=== PATIENT | male | born 1995 | race Caucasian/White ===

== ENCOUNTER 2021-11-05 16:38 | Emergency (ER) | payer OTHER, SELFPAY ==
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
[2021-11-05 16:44] VITALS: BP 146/79; PULSE 113; RESP 16; TEMP 36.6; O2SAT 100
[2021-11-05 17:15] LABS: Basophils Absolute Auto 0.1 K/mm3 (0.0-0.1); Basophils Percent Auto 0.7 % (0.2-1.2); Eosinophils Absolute Auto 0.3 K/mm3 (0-0.3); Eosinophils Percent Auto 3.4 % (0-4.4); Hematocrit 41.8 % (42.0-52.0); Hemoglobin 15.1 g/dL (14.0-18.0); Immature Granulocyte Absolute 0.01 K/mm3 (0.00-0.031); Immature Granulocyte Percent A 0.1 % (0-0.5); Lymphocytes Absolute Auto 2.49 K/mm3 (0.9-3.2); Lymphocytes Percent Auto 32.8 % (18.3-44.2); Mean Corpuscular HGB Conc 36.1 g/dl (32-36); Mean Corpuscular Hemoglobin 31.7 pg (26-34); Mean Corpuscular Volume 87.6 fl (80-100); Mean Platelet Volume 10.3 fl (7.4-10.4); Monocytes Absolute Auto 0.7 K/mm3 (0.1-0.6); Neutrophils Absolute Auto 4.1 K/mm3 (1.3-6.7); Platelet Count Result 206 k/mm3 (150-375); Red Blood Count 4.77 M/mm3 (4.6-6.20); White Blood Count 7.6 K/mm3 (4.5-10.0)
[2021-11-05 17:34] LABS: Alanine Aminotransferase 27 U/L (4-50); Albumin Level 4.3 g/dL (3.5-5.1); Alkaline Phosphatase 70 U/L (38-126); Anion Gap 6 mmol/L (8-16); Aspartate Amino Transferase 28 U/L (17-59); Bilirubin,Total 0.4 mg/dL (0.2-1.3); Blood Urea Nitrogen 15 mg/dL (9-20); Calcium 9.1 mg/dL (8.4-10.2); Carbon Dioxide 28 mmol/L (22-30); Chloride 104 mmol/L (98-107); Estimated CRCL calculation 131 ml/min; Estimated Glomerular Filt Rate > 60; Glucose 119 mg/dL (65-110); Sodium 138 mmol/L (137-145)
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
[2021-11-05] MEDS: KETOROLAC 30 MG/ML VIAL (*BKC) IV PUSH (18:00)
[2021-11-05] MEDS: SODIUM CHLORIDE 0.9% IV 1,000 ML 999 ML IV CONT (18:00)
== END 2021-11-05 19:30 | disposition home or self-care (01) ==
PROVIDERS: Emergency Provider Emergency Medicine
DX: S39.92XA Unspecified injury of lower back, initial encounter (principal); S16.1XXA Strain of muscle, fascia and tendon at neck level, initial encounter; M47.812 Spondylosis without myelopathy or radiculopathy, cervical region; V43.52XA Car driver injured in collision with other type car in traffic accident, initial encounter
CPT/HCPCS: 36415; 71046; 72125; 74177; 80053; 85025; 96361; 96374; 99284; J1885; J7030; Q9967

== ENCOUNTER 2022-05-16 08:42 | Emergency (ER) | payer OTHER, SELFPAY ==
[2022-05-16 08:45] VITALS: BP 155/82; PULSE 96; RESP 20; TEMP 37; O2SAT 99
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
[2022-05-16] MEDS: KETOROLAC (*BKC) 60 MG/2 ML VIAL IM (09:30)
[2022-05-16] MEDS: TRIAMCINOLONE ACET INJ 40 MG/ML VIAL 80 MG IM (09:38)
[2022-05-16 10:05] VITALS: BP 107/52; PULSE 68; RESP 16; O2SAT 98
== END 2022-05-16 10:05 | disposition home or self-care (01) ==
PROVIDERS: Emergency Provider Nurse Practitioner Family
DX: M54.16 Radiculopathy, lumbar region (principal)
CPT/HCPCS: 96372; 99284; J1885; J3301

== ENCOUNTER 2022-07-08 20:49 | Emergency (ER) | payer OTHER, SELFPAY ==
[2022-07-08] VITALS (19 sets, daily range): BP systolic 132–172; BP diastolic 66–116; PULSE 80–123; RESP 12–20; TEMP 36.9; O2SAT 95–100
--- NOTE | ~2022-07-08 | CT_ITS ---
EXAMINATION: CT brain wo con DATE: 07/08/2022 22:47 INDICATION: Frontal and bilateral superior headaches, nausea and light sensitivity. TECHNIQUE: Computed tomography (CT) of the head was performed without intravenous contrast. Sagittal and coronal reconstructions were performed. The mA was adjusted according to patient size. Iterative reconstruction technique was employed. The dose-length product was 681.00 mGy-cm. COMPARISON: None FINDINGS: No acute intracranial hemorrhage, acute infarction or abnormal extra axial fluid collection. Ventricl es are normal and symmetric. No mass/mass effect. Mild mucoperiosteal thickening in the bilateral eth moid sinuses. The orbits and mastoid air cells are normal. IMPRESSION: 1. Normal brain. No acute intracranial process. Reviewed, dictated and finalized at location A.
[2022-07-08 22:05] LABS: Influenza A QL RT-PCR Negative (Negative); Influenza B QL RT-PCR Negative (Negative); SARS-CoV-2 RNA PCR Negative
[2022-07-08] MEDS: KETOROLAC 30 MG/ML VIAL (*BKC) IV PUSH (22:51)
[2022-07-08] MEDS: diphenhydrAMINE HCl INJ 50 MG/ML VIAL 25 MG IV PUSH (22:52)
[2022-07-08] MEDS: methylPREDNISolone SOD SUCC 125 MG VIAL IV PUSH (22:52)
[2022-07-08] MEDS: METOCLOPRAMIDE HCL INJ 10 MG/2 ML VIAL IV PUSH (22:52)
[2022-07-08] MEDS: SODIUM CHLORIDE 0.9% IV 1,000 ML 999 ML IV CONT (22:52)
--- NOTE | 2022-07-08 22:54 | ED.GENADULT ---
HPI - General Adult General Chief complaint: Fever Stated complaint: fever, chills Time Seen by Provider: 07/08/22 20:51 History of Present Illness HPI narrative: 26-year-old male history of chronic low back pain with radicular symptoms to his left leg presents to the emergency room for multiple complaints. Patient states that he has been experiencing radicular pain in his right leg and left arm since last night. States that he normally takes gabapentin, but this has been not managing his pain. Patient also states he is experiencing head fullness that is light sensitive and has made him nauseated to the point where he is thrown up twice. Patient stated headache radiates down into his neck, causing pain when he attempts to move his neck around. Patient also states that he is been shivering, but only does so when people are watching him. Patient complains of subjective fever but states that he did not have a thermometer so he does not know what his temperature was. Related Data Allergies Allergy/AdvReac Type Severity Reaction Status Date / Time No Known Allergies Allergy Verified 07/08/22 20:53 Review of Systems Review of Systems: CONSTITUTIONAL: Reports fever, chills, and sweats. EYES: Reports photophobia ENT: Denies rhinorrhea, congestion, sore throat, or otalgia. CARDIOVASCULAR: Denies chest pain, palpitations, or edema. RESPIRATORY: Denies cough or dyspnea. GASTROINTESTINAL: Reports nausea and vomiting GENITOURINARY: Denies dysuria or hematuria. SKIN: Denies rash or itching. MUSCULOSKELETAL: Reports neck pain, left arm pain, bilateral leg pain NEUROLOGIC: Reports headache PSYCHIATRIC: Denies anxiety or depression. PMFSH Past Medical History Medical History Patient denies significant medical history Social History Social History Smoking status: Never smoker Exam Narrative: GENERAL: Well-appearing, well-nourished, no physical limitations, and in no acute distress. HEAD: Normocephalic, atraumatic. EYES: Conjunctivae normal, PERRLA and EOMI. ENT: External nose normal, Nares clear, no rhinorrhea or epistaxis. Mucous membranes moist. Oropharynx without tonsillar hypertrophy exudate or other lesions. External ears normal, bilateral TMs normal bilaterally NECK: Supple. No meningeal signs. No adenopathy or masses. CHEST: Clear to auscultation. No respiratory distress. No wheezes rales or rhonchi. HEART: Regular rate and rhythm. No murmur heard. Normal peripheral pulses. ABDOMEN: Soft, nontender, nondistended, normal active bowel sounds. BACK: Midline cervical tenderness, step-offs, bony abnormality; pain with forward flexion of the cervical spine EXTREMITIES: Normal range of motion. No edema. No clubbing or cyanosis SKIN: Warm, dry, no rash. No noted wounds NEURO: No focal deficits. Alert and oriented x3. MAEW. CN's II-XI intact bilaterally. Intentional tremors of the lower extremities PSYCH: Histrionic Course Course Emergency Course: 2214: Patient significant other was seen calling other emergency room's inquiring as to what they are we times where prior to be seen by the provider. Vital Signs Vital signs: Vital Signs Temperature 36.9 C 07/08/22 20:50 Pulse Rate 123 H 07/08/22 20:50 Respiratory Rate 20 07/08/22 20:50 Blood Pressure 172/66 H 07/08/22 20:50 Pulse Oximetry 99 07/08/22 20:50 Oxygen Delivery Room Air 07/08/22 20:50 Temperature 36.9 C 07/08/22 20:50 Pulse Rate 84 07/08/22 22:51 Respiratory Rate 18 07/08/22 22:51 Blood Pressure 99/60 L 07/09/22 00:16 Pulse Oximetry 96 07/09/22 00:16 Oxygen Delivery Room Air 07/08/22 20:50 Medical Decision Making [facility] Narrative Medical decision making narrative: 26-year-old male presented to the emergency room with multiple medical complaints. Patient initially came into triage complaining of headache, nausea
[2022-07-08 22:58] LABS: Basophils Percent Auto 0.3 % (0.2-1.2); Eosinophils Absolute Auto 0.1 K/mm3 (0-0.3); Eosinophils Percent Auto 0.4 % (0-4.4); Hematocrit 45.3 % (42.0-52.0); Hemoglobin 15.9 g/dL (14.0-18.0); Immature Granulocyte Absolute 0.06 K/mm3 (0.00-0.031); Immature Granulocyte Percent A 0.5 % (0-0.5); Lymphocytes Absolute Auto 2.11 K/mm3 (0.9-3.2); Lymphocytes Percent Auto 16.5 % (18.3-44.2); Mean Corpuscular HGB Conc 35.1 g/dl (32-36); Mean Corpuscular Hemoglobin 30.4 pg (26-34); Mean Corpuscular Volume 86.6 fl (80-100); Monocytes Absolute Auto 1.1 K/mm3 (0.1-0.6); Monocytes Percent Auto 8.7 % (2.6-8.5); Neutrophils Absolute Auto 9.4 K/mm3 (1.3-6.7); Neutrophils Percent Auto 73.6 % (45.5-73.1); Platelet Count Result 218 k/mm3 (150-375); Red Blood Count 5.23 M/mm3 (4.6-6.20); Red Cell Distribution Width 12.1 % (11.5-14.5); White Blood Count 12.8 K/mm3 (4.5-10.0)
[2022-07-08 23:09] LABS: Lactic Acid Reflex 0.9 mmol/L (0.7-2.0)
[2022-07-08 23:10] LABS: Alanine Aminotransferase 37 U/L (6-50); Albumin Level 4.8 g/dL (3.5-5.1); Alkaline Phosphatase 84 U/L (38-126); Anion Gap 9 mmol/L (8-16); Aspartate Amino Transferase 27 U/L (17-59); Bilirubin,Total 0.6 mg/dL (0.2-1.3); Blood Urea Nitrogen 16 mg/dL (9-20); Calcium 9.5 mg/dL (8.4-10.2); Carbon Dioxide 27 mmol/L (22-30); Chloride 101 mmol/L (98-107); Estimated CRCL calculation 14 ml/min; Estimated Glomerular Filt Rate > 60; Glucose 109 mg/dL (65-110); Potassium 3.7 mmol/L (3.4-5.0); Sodium 137 mmol/L (137-145)
[2022-07-08 23:37] LABS: CRP < 0.5 mg/dL (<1.0)
[2022-07-09] VITALS (9 sets, daily range): BP systolic 99–135; BP diastolic 60–69; PULSE 103; RESP 16; O2SAT 95–97
[2022-07-09 00:02] LABS: Add Urine Microscopic? YES; Appearance Urine Clear (Clear); Bilirubin Urine Negative (Negative); Blood Urine Negative (Negative); Color Urine Yellow (Yellow); Glucose Urine UA Negative (Negative); Ketones Urine Trace mg/dL (Negative); Leukocyte Esterase Ur Negative LEU/UL (Negative); Mucus Urine Rare /lpf; Nitrate Urine Negative (Negative); Protein Urine Negative (Negative); RBC Urine 0-2 /hpf (0-2); Specific Grav Ur 1.027 (1.001-1.035); Squamous Epithelial Cell Urine Rare /hpf (Few); Urobilinogen Urine Negative mg/dL (<2.0); WBC Urine 0-3 /hpf
[2022-07-09 00:11] LABS: Amphetamine Screen Urine Negative (Negative); Barbiturate Screen Urine Negative (Negative); Benzodiazepines Screen Urine Negative (Negative); Cannabinoid Screen Urine Positive (Negative); Cocaine Screen Urine Negative (Negative); Methadone Screen Urine Negative (Negative); Opiate Screen Urine Negative (Negative); Phencyclidine Screen Urine Negative (Negative)
== END 2022-07-09 00:39 | disposition home or self-care (01) ==
PROVIDERS: Emergency Provider Nurse Practitioner Family
DX: G44.209 Tension-type headache, unspecified, not intractable (principal); B34.9 Viral infection, unspecified; Z20.822 Contact with and (suspected) exposure to COVID-19; Z79.899 Other long term (current) drug therapy
CPT/HCPCS: 36415; 51701; 70450; 80053; 80307; 81001; 83605; 85025; 86140; 87502; 96361; 96374; 96375; 99284; C9803; J1200; J1885; J2765; J2930; J7030; U0003; U0005

== ENCOUNTER 2024-05-12 08:24 | Emergency (ER) | payer SELFPAY ==
[2024-05-12] VITALS (10 sets, daily range): BP systolic 113–138; BP diastolic 60–79; PULSE 65–84; RESP 12–20; TEMP 36.6–37.2; O2SAT 98
--- NOTE | ~2024-05-12 | XR_ITS ---
EXAMINATION: XR chest 2V DATE: 05/12/2024 10:22 INDICATION: Shortness of breath, cough and congestion TECHNIQUE: PA and lateral views of the chest were obtained. COMPARISON: Chest radiograph dated 11/05/2021 FINDINGS: The lungs remain clear with no focal airspace opacities, pulmonary edema, pleural effusion or pneumot horax. The cardiomediastinal silhouette is normal. Visualized bones and soft tissues are unremarkable . IMPRESSION: 1. No acute cardiopulmonary disease. Reviewed, dictated and finalized at location A.
--- NOTE | 2024-05-12 08:31 | ECG_ITS ---
Test Date: 2024-05-12 08:36:25 Measurements Intervals [place] Rate: 72 P: 63 MS: 166 QRS: 0 QRSD: 98 T: 29 QT: 354 QTc: 389 Interpretive Statements SINUS RHYTHM POSSIBLE LEFT ATRIAL ENLARGEMENT [-0.1mV P WAVE IN V1/V2] INCOMPLETE RIGHT BUNDLE BRANCH BLOCK No previous ECG available for comparison Electronically Signed On 05-13-2024 10:12:18 CDT by Bianka Willis M.D.
[2024-05-12 08:54] LABS: Basophils Percent Auto 0.4 % (0.2-1.2); Eosinophils Absolute Auto 0.2 K/mm3 (0-0.3); Eosinophils Percent Auto 3.1 % (0-4.4); Hematocrit 41.4 % (42.0-52.0); Hemoglobin 14.4 g/dL (14.0-18.0); Immature Granulocyte Absolute 0.01 K/mm3 (0.00-0.031); Immature Granulocyte Percent A 0.1 % (0-0.5); Immature Platelet Fraction Pct 3.8 % (0.9-11.2); Lymphocytes Absolute Auto 1.61 K/mm3 (0.9-3.2); Mean Corpuscular HGB Conc 34.8 g/dl (32-36); Mean Corpuscular Hemoglobin 30.7 pg (26-34); Mean Corpuscular Volume 88.3 fl (80-100); Mean Platelet Volume 10.4 fl (7.4-10.4); Monocytes Absolute Auto 0.7 K/mm3 (0.1-0.6); Monocytes Percent Auto 9.6 % (2.6-8.5); Neutrophils Absolute Auto 4.7 K/mm3 (1.3-6.7); Neutrophils Percent Auto 64.8 % (45.5-73.1); Platelet Count Result 132 k/mm3 (150-375); Red Blood Count 4.69 M/mm3 (4.6-6.20); White Blood Count 7.3 K/mm3 (4.5-10.0)
[2024-05-12 09:03] LABS: Alanine Aminotransferase 30 U/L (6-50); Albumin Level 4.2 g/dL (3.5-5.1); Alkaline Phosphatase 56 U/L (38-126); Anion Gap 8 mmol/L (4-12); Aspartate Amino Transferase 30 U/L (17-59); Bilirubin,Total 0.6 mg/dL (0.2-1.3); Blood Urea Nitrogen 14 mg/dL (9-20); Calcium 8.7 mg/dL (8.4-10.2); Carbon Dioxide 29 mmol/L (22-30); Chloride 101 mmol/L (98-107); Estimated CRCL calculation 135 ml/min; Estimated Glomerular Filt Rate > 60; Glucose 104 mg/dL (65-110); Sodium 138 mmol/L (137-145)
--- NOTE | 2024-05-12 09:22 | ED.SOB ---
HPI - SOB/Dyspnea General Chief Complaint: Shortness of Breath/Dyspnea Stated Complaint: chills, sweats, body aches Time Seen by Provider: 05/12/24 09:01 Source: patient Mode of arrival: ambulatory Limitations: no limitations History of Present Illness HPI Narrative: Patient is a 28-year-old male who presents the ED with multiple complaints. Reports he has been sick since Sunday with dizziness, lightheadedness, cough, shortness of breath with exertion, body aches, chills, night sweats, sore throat, headache. Patient has taken ibuprofen over the weekend, has not taken anything for symptoms today. Denies any sick contacts. Denies known fevers. Denies chest pain. Denies nausea, vomiting. Related Data Allergies Allergy/AdvReac Type Severity Reaction Status Date / Time No Known Allergies Allergy Verified 07/08/22 20:53 Review of Systems Review of Systems: All systems reviewed & are unremarkable except as noted in HPI. All systems reviewed & are unremarkable except as noted in HPI and below PMFSH Past Medical History Medical History Patient denies significant medical history Social History Social History (Updated 05/12/24 @ 09:26 by Shala Arrington PA-C) Smoking status: Current every day smoker Exam Narrative: GENERAL: Well appearing, obese with BMI of 33.0, non-toxic, in no acute distress. HEAD: Normocephalic, atraumatic. ENT: Minimal posterior pharynx erythema. No tonsillar hypertrophy or exudate. Uvula midline. RESPIRATORY: Airway patent, respirations nonlabored. Clear to auscultation bilaterally, no rales, rhonchi, wheezing. no focal lung sounds. CARDIOVASCULAR: Regular rate and rhythm without murmurs, rubs, or gallops. MUSCULOSKELETAL: Moves all extremities. No gross deformities. SKIN: Warm, dry, normal color. Psoriasis rash to bilateral lower extremities. NEURO: A&O X3. Speech clear. Cranial nerves II-XII grossly intact. Steady gait. No ataxic movements. PSYCHIATRIC: Appropriate mood and affect. Normal interaction. Course Vital Signs Vital signs: Vital Signs Temperature 97.9 F 05/12/24 08:29 Pulse Rate 77 05/12/24 08:29 Respiratory Rate 16 05/12/24 08:29 Blood Pressure 138/70 05/12/24 08:29 Pulse Oximetry 98 05/12/24 08:29 Oxygen Delivery Room Air 05/12/24 08:29 Temperature 98.9 F 05/12/24 10:41 Pulse Rate 65 05/12/24 11:28 Respiratory Rate 20 05/12/24 11:28 Blood Pressure 113/74 05/12/24 11:28 Pulse Oximetry 98 05/12/24 11:28 Oxygen Delivery Room Air 05/12/24 08:52 MDM - SOB/Dyspnea MDM Narrative Medical decision making narrative: Patient presented to ED with numerous viral type symptoms. Vital signs are stable upon arrival. Patient afebrile, no acute distress. Orthostatic vital signs were evaluated and no significant change in blood pressure, though heart rate did increase slightly. Fluids initiated. CBC and CMP without remarkable findings. Chest x-ray is clear. COVID testing resulted positive. Negative for influenza, RSV, strep. This is consistent with patient's symptoms and clinical presentation. Patient given fluids, Toradol, Tylenol in the ED. He is feeling better upon re-evaluation. Feel he is safe for discharge home at this time with close outpatient follow-up as needed. Discussed further management of COVID-19 at home. Will discharge with Carmelo Jauregui as needed, given strict return precautions. He agrees with plan. Discharged in stable condition. Medical Records Attestation: I reviewed the patient's medical records. Lab Data Attestation: I reviewed the patient's lab results. 05/12/24 08:48 05/12/24 08:48 Labs: Lab Results 05/12/24 05/12/24 05/12/24 Range/Units 08:48 08:56 08:57 WBC 7.3 (4.5-10.0) K/mm3 RBC 4.69 (4.6-6.20) M/mm3 Hgb 14.4 (14.0-18.0) g/dL Hct 41.4 L (42.0-52.0) % M
[2024-05-12 09:29] LABS: Strep Group A RT-PCR NOT DETECTED (Negative)
[2024-05-12] MEDS: SODIUM CHLORIDE 0.9% IV 1,000 ML 999 ML IV CONT ×2 (09:38→09:39)
[2024-05-12] MEDS: KETOROLAC 30 MG/ML VIAL (*BKC) IV PUSH (09:39)
[2024-05-12] MEDS: ONDANSETRON INJ 4 MG/2 ML VIAL IV PUSH (09:39)
[2024-05-12] MEDS: ACETAMINOPHEN 500 MG TABLET 1000 MG PO (09:39)
[2024-05-12 09:40] LABS: Influenza A QL RT-PCR Negative (Negative); Influenza B QL RT-PCR Negative (Negative); RSV RNA, RT-PCR Negative (Negative); SARS-CoV-2 RNA PCR Positive (Negative)
== END 2024-05-12 11:33 | disposition home or self-care (01) ==
PROVIDERS: Student in an Organized Health Care Education/Training Program; Emergency Provider Physician Assistant
DX: U07.1 COVID-19 (principal); F17.210 Nicotine dependence, cigarettes, uncomplicated
CPT/HCPCS: 36415; 71046; 80053; 85025; 85055; 87637; 87651; 93005; 96361; 96374; 96375; 99284; A9270; J1885; J2405; J7030